=== PATIENT | female | born 2000 | race Caucasian/White ===

== ENCOUNTER 2023-06-25 13:02 | Inpatient (IN) | payer OTHER, SELFPAY ==
[2023-06-25] MEDS ORDERED: GABA-1171 PO (14:51)
[2023-06-25] MEDS ORDERED: CELE0.09 PO (14:51)
[2023-06-25] MEDS ORDERED: ALL10TAB2 PO (14:51)
[2023-06-25] MEDS ORDERED: LEXA1TAB2 PO (14:51)
[2023-06-25 14:52] LABS: HEMATOCRIT 42.4 % (36.0-47.0); HEMOGLOBIN 14.3 g/dl (12.0-15.5); MEAN CORPUSCULAR HEMOGLOBIN 31.2 pg (27.0-33.0); MEAN CORPUSCULAR HGB CONC 33.7 g/dl (32.0-36.5); MEAN CORPUSCULAR VOLUME 92.4 fl (80.0-96.0); PLATELET COUNT, AUTOMATED 263 10^3/uL (150-450); RED BLOOD COUNT 4.59 10^6/uL (4.00-5.40); WHITE BLOOD COUNT 6.8 10^3/uL (4.0-10.0)
[2023-06-25 15:14] LABS: AMPHETAMINES LEVEL URINE NEGATIVE (NEGATIVE); BARBITURATES URINE NEGATIVE (NEGATIVE); BENZODIAZEPINES URINE NEGATIVE (NEGATIVE); CANNABINOIDS URINE NEGATIVE (NEGATIVE); COCAINE METABOLITE URINE NEGATIVE (NEGATIVE); METHADONE URINE NEGATIVE (NEGATIVE); OPIATES URINE NEGATIVE (NEGATIVE); PHENCYCLIDINE URINE NEGATIVE (NEGATIVE)
[2023-06-25 15:17] LABS: ETHYL ALCOHOL (ETHANOL) < 0.003 % (0.000-0.010)
[2023-06-25 15:19] LABS: ALKALINE PHOSPHATASE 64 U/L (46-116); ALT/SGPT 27 U/L (7.0-40); AST/SGOT 17 U/L (<34); BILIRUBIN,DIRECT 0.1 MG/DL (<0.4); BILIRUBIN,TOTAL 0.4 MG/DL (0.3-1.2); BLOOD UREA NITROGEN 13 MG/DL (9-23); CALCIUM LEVEL 8.8 MG/DL (8.5-10.1); CARBON DIOXIDE LEVEL 28 MMOL/L (20-31); CHLORIDE LEVEL 107 MMOL/L (98-107); GLOMERULAR FILTRATION RATE > 60.0 (>60); GLUCOSE, FASTING 106 MG/DL (60-100); POTASSIUM SERUM 4.1 MMOL/L (3.5-5.1); SALICYLATE LEVEL < 3.0 MG/DL (<30); SODIUM LEVEL 140 MMOL/L (136-145); TOTAL PROTEIN 7.7 G/DL (5.7-8.2)
[2023-06-25 15:21] LABS: THYROID STIMULATING HORMONE 1.604 uIU/ML (0.55-4.78)
[2023-06-25 15:54] LABS: HCG, SERUM QUALITATIVE NEGATIVE (NEGATIVE)
[2023-06-25] MEDS: ACETAMINOPHEN TAB 650MG DOSE (2X325MG) PO ONE (16:38)
[2023-06-25] MEDS ORDERED: HOME MED LIST COMPLETE! XX SCH (20:20)
[2023-06-25 20:57] VITALS: BP 128/61; TEMP 97.3; O2SAT 97
[2023-06-26 06:36] VITALS: BP 112/67; TEMP 98; O2SAT 98
[2023-06-26] MEDS: GABAPENTIN 100 MG CAP PO SCH (17:00)
[2023-06-26 18:33] VITALS: BP 131/60; TEMP 98
[2023-06-26] MEDS: ESCITALOPRAM OXALATE 10 MG TAB (LEXAPRO) PO SCH (20:19)
[2023-06-26] MEDS: ARIPiprazole 2 MG TAB PO SCH (20:19)
[2023-06-26] MEDS: CETIRIZINE (ZyrTEC) 10 MG TAB PO SCH (20:19)
[2023-06-27 06:44] VITALS: BP 123/58; TEMP 98; O2SAT 96
[2023-06-27 07:13] LABS: CHOLESTEROL RISK RATIO 2.93 (<5); HDL CHOLESTEROL 55.2 MG/DL (>40); LDL CHOLESTEROL 96.2 MG/DL (<100); NON-HDL-C 106.8 MG/DL
[2023-06-27 18:11] VITALS: BP 117/63; TEMP 98.3; O2SAT 97
[2023-06-28 06:38] VITALS: BP 111/61; TEMP 98.4; O2SAT 96
[2023-06-28 08:36] VITALS: BP 111/61; TEMP 98.4; O2SAT 96
[2023-06-28] MEDS ORDERED: ABIL1TAB13 PO (08:38)
== END 2023-06-28 09:57 | disposition home or self-care (01) | DRG 881 ==
LOC: M ED 13:02 → EDBD 13:02 → M ED INP 17:13 → M PSY 20:34
PROVIDERS: ADMIT Student in an Organized Health Care Education/Training Program; ATTEND Student in an Organized Health Care Education/Training Program
DX: F32.A Depression, unspecified (principal); R45.851 Suicidal ideations; G89.29 Other chronic pain; F43.10 Post-traumatic stress disorder, unspecified; Z79.899 Other long term (current) drug therapy; F43.20 Adjustment disorder, unspecified

== ENCOUNTER 2023-08-07 08:21 | Day surgery (SDC) | payer OTHER ==
[~2023-08-07] VITALS: Ht 165.1 cm; Wt 82.4 kg
[~2023-08-07 08:21] MED LIST: ABIL1TAB13 PO; ALL10TAB2 PO; CELE0.09 PO; GABA-1171 PO; LEXA1TAB2 PO
[2023-08-07] MEDS ORDERED: LR 1,000 ML IV SCH ×2 (08:50→12:35)
[2023-08-07] MEDS ORDERED: fentaNYL 100 MCG/2 ML INJECTION As Ordered ONE (10:31)
[2023-08-07] MEDS ORDERED: LIDOCAINE 2% INJ 100 MG/5 ML SYRINGE As Ordered ONE (10:31)
[2023-08-07] MEDS ORDERED: propofoL 200 MG/20 ML VIAL As Ordered ONE (10:31)
[2023-08-07] MEDS ORDERED: MIDAZOLAM INJ 2MG/2ML VIAL As Ordered ONE (11:01)
[2023-08-07] MEDS: ceFAZolin SOD 2 GM in IV 1 EA IV ONE (11:35)
[2023-08-07] MEDS ORDERED: ONDANSETRON 4MG 2ML VIAL As Ordered ONE (11:37)
[2023-08-07] MEDS ORDERED: GLYCOPYRROLATE INJ 0.2 MG/ML 2 ML VIAL As Ordered ONE (11:43)
[2023-08-07] MEDS ORDERED: KETOROLAC 60MG 2ML VIAL As Ordered ONE (12:14)
[2023-08-07] MEDS ORDERED: oxyCODONE 5MG TAB PO PRN (12:35)
[2023-08-07] MEDS ORDERED: fentaNYL 100 MCG/2 ML INJECTION IV PRN (12:35)
[2023-08-07] MEDS ORDERED: HYDROMORPHONE HCL 0.5 MG/ 0.5 ML SYRINGE IV PRN (12:35)
[2023-08-07] MEDS: ONDANSETRON 4MG 2ML VIAL IV PRN (13:10)
[2023-08-07 13:40] VITALS: BP 126/75; TEMP 97.7; O2SAT 97
== END 2023-08-07 14:05 | disposition home or self-care (01) ==
LOC: M SDC 08:21
PROVIDERS: ATTEND Student in an Organized Health Care Education/Training Program
DX: G56.02 Carpal tunnel syndrome, left upper limb (principal); G56.22 Lesion of ulnar nerve, left upper limb; F32.A Depression, unspecified; F41.9 Anxiety disorder, unspecified; Z79.899 Other long term (current) drug therapy; Z91.018 Allergy to other foods
CPT/HCPCS: 29848; 29999; 81025; J0665; J0690; J1100; J1885; J2250; J2405; J3010

== ENCOUNTER 2024-01-06 07:32 | Day surgery (SDC) | payer OTHER ==
[~2024-01-06] VITALS: Ht 165.1 cm; Wt 80.1 kg
[~2024-01-06 07:32] MED LIST changes: +LORA-930 PO
[2024-01-06] MEDS ORDERED: LR 1,000 ML IV SCH (08:10)
[2024-01-06] MEDS ORDERED: ACETAMINOPHEN 1000MG 100ML IV BAG As Ordered ONE (08:39)
[2024-01-06] MEDS ORDERED: propofoL 200 MG/20 ML VIAL As Ordered ONE (08:39)
[2024-01-06] MEDS ORDERED: LIDOCAINE 2% 100MG/5ML SDV (FOR ANES.) As Ordered ONE (08:39)
[2024-01-06] MEDS ORDERED: MIDAZOLAM INJ 2MG/2ML VIAL As Ordered ONE (08:39)
[2024-01-06] MEDS ORDERED: fentaNYL 100 MCG/2 ML INJECTION As Ordered ONE (08:39)
[2024-01-06] MEDS: ceFAZolin 2 GM/D5W 50 ML IV BAG As Ordered ONE (10:22)
[2024-01-06] MEDS ORDERED: ONDANSETRON 4MG 2ML VIAL As Ordered ONE (10:28)
[2024-01-06] MEDS ORDERED: KETOROLAC 60MG 2ML VIAL As Ordered ONE (10:28)
[2024-01-06] MEDS ORDERED: diphenhydrAMINE 50MG/ML VIAL IV PRN (11:10)
[2024-01-06] MEDS ORDERED: oxyCODONE 5MG TAB PO PRN (11:10)
[2024-01-06] MEDS ORDERED: MEPERIDINE 25 MG/ML 1ML VIAL IV PRN (11:10)
[2024-01-06] MEDS ORDERED: METOCLOPRAMIDE INJ 10MG/2ML VIAL IV PRN (11:10)
[2024-01-06] MEDS ORDERED: fentaNYL 100 MCG/2 ML INJECTION IV PRN (11:10)
[2024-01-06] MEDS ORDERED: HYDROMORPHONE HCL 0.5 MG/ 0.5 ML SYRINGE IV PRN (11:10)
[2024-01-06] MEDS ORDERED: PERC5TAB12 PO (11:21)
[2024-01-06] MEDS: ONDANSETRON 4MG 2ML VIAL IV PRN (12:21)
[2024-01-06] MEDS: METOCLOPRAMIDE INJ 10MG/2ML VIAL IV PRN (13:17)
[2024-01-06 13:51] VITALS: BP 115/64; TEMP 97; O2SAT 96
== END 2024-01-06 13:56 | disposition home or self-care (01) ==
LOC: M SDC 07:32
PROVIDERS: ATTEND Orthopaedic Surgery Hand Surgery
DX: G56.01 Carpal tunnel syndrome, right upper limb (principal); G56.21 Lesion of ulnar nerve, right upper limb; F41.9 Anxiety disorder, unspecified; F32.A Depression, unspecified; Z79.899 Other long term (current) drug therapy
CPT/HCPCS: 29848; 29999; 81025; J0131; J0665; J0690; J1100; J1885; J2250; J2405; J2765; J3010